=== PATIENT | female | born 1965 | race Caucasian/White ===

== ENCOUNTER 2022-11-24 16:08 | Emergency (ER) | payer MEDICAID ==
[~2022-11-24] VITALS: Ht 154.9 cm; Wt 52.2 kg
--- NOTE | 2022-11-24 16:53 | NUR ---
PT CAME IN DUE TO BACK PAIN FOR SEVERALM DAYS
--- NOTE | 2022-11-24 16:55 | NUR ---
PT PUT ON MONITOR AND PULSE. ON GOWN
[2022-11-24] MEDS ORDERED: CYCL5TAB PO (17:57)
[2022-11-24] MEDS ORDERED: NAPR-1009 PO (17:57)
[2022-11-24 18:13] VITALS: BP 104/61
== END 2022-11-24 18:14 | disposition home or self-care (01) ==
LOC: ER 16:22
DX: M54.6 Pain in thoracic spine (principal); I10 Essential (primary) hypertension; V19.9XXA Pedal cyclist (driver) (passenger) injured in unspecified traffic accident, initial encounter; Y93.89 Activity, other specified; Y92.89 Other specified places as the place of occurrence of the external cause; Y99.8 Other external cause status
CPT/HCPCS: 71045-TC; 72074-TC